=== PATIENT | male | born 1970 | race Caucasian/White ===

== ENCOUNTER → 2021-09-10 07:00 | Outpatient (CLI) | payer OTHER, SELFPAY ==
[2021-09-10 19:42] LABS: COVID19 - ORCAS (NP or Nasal) Negative (Negative)
== END ==
PROVIDERS: PCP Family Medicine; Visit Provider Physician Assistant
DX: Z20.822 Contact with and (suspected) exposure to COVID-19 (principal); Z01.812 Encounter for preprocedural laboratory examination
CPT/HCPCS: U0003

== ENCOUNTER 2021-09-12 08:32 | Day surgery (SDC) | payer OTHER, SELFPAY ==
--- NOTE | 2021-09-12 | PATH_ITS ---
[facility] Accession Number: [id number] . 01 Material submitted: . colon - ASCENDING POLYP . 01 Diagnosis: Ascending Colon, Polyp, Biopsy: Tubular adenoma. MRV 09/17/2021 1334 Local . 01 Electronically signed: . Jyotsna Fall MD, Pathologist NPI- [id number] . 01 Gross description: . ASCENDING POLYP: Received in formalin are multiple fragment(s) of reynolds, soft tissue measuring 2.0 x 0.7 x 0.3 cm in aggregate submitted entirely in 1 cassette(s) /CPE 09/13/2021 0523 Local . 01 Pathologist provided ICD-10: D12.2 . 01 CPT . 017969 Specimen Comment: A courtesy copy of this report has been sent to [phone] Performed at: 01 [facility] [address] [place] [address] [id number] MD Adam Richards MD Phone: [phone]
[2021-09-12 09:20] VITALS: BP 110/60; PULSE 671; RESP 16; TEMP 36.8; O2SAT 100; BMI 22.6
[2021-09-12] MEDS: SODIUM CHLORIDE 0.9% 1,000 ML 84 ML IV (09:32)
--- NOTE | 2021-09-12 09:58 | PM.HP.1 ---
History of Present Illness History of Present Illness Date Patient Seen: 09/12/21 Time Patient Seen: 09:58 Chief complaint: SDC Narrative: Brian is a 51-year-old man who is here for colon cancer screening. He has never had a colonoscopy before. Patient History Family & Social History Social History: household members spouse Tobacco & Substance use: Smoking Status Never smoker alcohol intake current alcohol intake frequency 0-2 drinks per day Substance Use Type does not use Meds Home Medications and Allergies Home Medications Medication Instructions Recorded Confirmed Type sumatriptan succinate 50 mg tablet 50 mg PO ONCE 01/08/21 09/12/21 History Allergies Allergy/AdvReac Type Severity Reaction Status Date / Time fluconazole Allergy Severe Rash Verified 01/08/21 08:48 clindamycin Allergy Mild Rash Verified 01/08/21 08:48 Exam Vital Signs (past 8 hours): - 09/12/21 09:20 Temperature 98.3 F Pulse Rate 671 H Respiratory Rate 16 Blood Pressure 110/60 Pulse Oximetry 100 Oxygen Delivery Method Room Air Const General: healthy appearing Resp Effort & Inspection: normal respiratory effort GI Palpation: soft Assessment & Plan Assessment and plan (1) Colon cancer screening: Status: Acute Plan 51-year-old man who is due for colon cancer screening. We discussed the risks and benefits of colonoscopy for colon cancer screening and he would like to proceed. He is an ASA 2. COVID-19 COVID-19 status: Negative Result date/Date tested (Pos, Neg/Pending): 09/11/21 Time Spent With Patient Critical Care time: I spent a total of [] minutes of critical care time on this patient's care today; this time is exclusive of procedural time.
[2021-09-12] MEDS: fentaNYL 250 MCG/5 ML INJ 225 MCG IV (10:31)
[2021-09-12] MEDS: MIDAZOLAM 5 MG/5 ML VIAL 7 MG IV (10:31)
--- NOTE | 2021-09-12 10:50 | PM.OP.COLON ---
Operative Date/Time/Diagnoses Date of procedure: 09/12/21 Time of procedure: 10:50 Pre-op diagnosis: Colon cancer screening Post-op diagnosis: same Procedure & Clinicians Study performed: Colonoscopy Same procedure as scheduled: Yes Procedure Notes Procedure in detail: Surgeon: Joshua Elliott MD Procedure: The patient was brought to the endoscopy suite, placed in left lateral decubitus position. The patient was connected to monitoring devices. A time-out was performed. Sedation was administered. Once the patient was adequately sedated, a digital rectal exam was performed and was normal. The scope was then inserted and advanced to the cecum where the appendiceal orifice was identified and photographed. The scope was then slowly withdrawn over greater than 6 minutes. Mucosa was thoroughly inspected. There was a large pedunculated polyp in the ascending colon just distal to ileocecal valve which was about 2 cm diameter. This was snared at the base and removed with the hot snare. The polyp was too large to through the channel so the snare was brought back into divide the polyp into about the pieces which could not be suctioned into the trap. These were sent as ?ascending colon polyp. The rest of the colon was normal. The scope was retroflexed in the rectum. No abnormalities were seen. The scope was straightened and removed. The patient was awakened and brought to recovery. Versed: 7 mg Fentanyl: 225 mcg EBL: 5 mL Findings: 2-3 cm pedunculated polyp in ascending colon. Scope withdrawal time: 15 Sedation minutes: 36 Post-procedure Recommendations: Will call with biopsy results Disposition: PACU
[2021-09-12 10:54] VITALS: BP 109/66; PULSE 64; RESP 16; TEMP 36.3; O2SAT 99
[2021-09-12 10:59] VITALS: BP 99/60; PULSE 61; RESP 16; O2SAT 99
[2021-09-12 11:08] VITALS: BP 109/62; PULSE 63; RESP 16; TEMP 36.8; O2SAT 100
== END 2021-09-12 11:13 | disposition home or self-care (01) ==
PROVIDERS: PCP Family Medicine; Referring Provider Surgery; Visit Provider Surgery
PROC: 0DJD8ZZ Inspection of Lower Intestinal Tract, Via Natural or Artificial Opening Endoscopic (ICD-10-PCS; CPT 45378; principal; 2021-09-12 10:15)
DX: Z12.11 Encounter for screening for malignant neoplasm of colon (principal); D12.2 Benign neoplasm of ascending colon
CPT/HCPCS: 45385; 99152; 99153; J2250; J3010

== ENCOUNTER → 2023-10-02 09:24 | Outpatient (CLI) | payer OTHER, SELFPAY ==
[2023-10-02 18:17] LABS: Add Manual Diff / Slide Review NO; Basophils Absolute Auto 0 /uL (0-100); Basophils Percent Auto 0.6 % (0-2); Eosinophils Absolute Auto 100 /uL (0-450); Eosinophils Percent Auto 2.9 % (2-4); Hematocrit 41.5 % (41-53); Hemoglobin 14.2 g/dL (13.5-17.5); Lymphocytes Absolute Auto 1600 /uL (1100-4500); Mean Corpuscular HGB Conc 34.1 % (30-36); Mean Corpuscular Hemoglobin 29.7 PG (26-34); Mean Corpuscular Volume 86.9 fL (80-100); Monocytes Absolute Auto 300 /uL (0-900); Monocytes Percent Auto 7.9 % (3-14); Neutrophils Absolute Auto 2300 /uL (1500-7000); Neutrophils Percent Auto 51.6 % (50-75); Platelet Count 209 X10^3/uL (150-400); Red Blood Cell Count 4.77 X10^6/uL (4.5-5.9); Red Cell Distribution Width 13.1 % (11.6-14.8); White Blood Cell Count 4.4 X10^3/uL (4.5-11.0)
[2023-10-02 18:34] LABS: BUN Creatinine Ratio 20.3 (6-22); Blood Urea Nitrogen 15 mg/dL (9-20); Carbon Dioxide 28 mmol/L (22-32); Chloride 102 mmol/L (98-107); Cholesterol 198 mg/dL (140-199); Estimated Glomerular Filt Rate > 60 mL/min (>60); Glucose 92 mg/dL (70-100); HDL Cholesterol 71 mg/dL (40-60); HEMOLYSIS 20 (0-50); LDL Cholesterol Calculated 107 mg/dL (<100); Potassium 4.3 mmol/L (3.4-5.1); Sodium 136 mmol/L (137-145); Triglycerides 101 mg/dL (35-150)
[2023-10-02 19:03] LABS: Prostate Specific Antigen Scrn 2.11 ng/mL (0.1-4.0)
== END ==
PROVIDERS: PCP Family Medicine; Referring Provider Family Medicine; Visit Provider Family Medicine
DX: Z12.5 Encounter for screening for malignant neoplasm of prostate (principal); Z13.1 Encounter for screening for diabetes mellitus; Z13.220 Encounter for screening for lipoid disorders; Z13.6 Encounter for screening for cardiovascular disorders
CPT/HCPCS: 80048; 80061; 85025; G0103

== ENCOUNTER 2024-10-13 09:09 | Day surgery (SDC) | payer BC, SELFPAY ==
[2024-10-13 09:26] VITALS: BP 110/64; PULSE 80; RESP 15; TEMP 36.7; O2SAT 99
[2024-10-13] MEDS: LACTATED RINGERS 1,000 ML 84 ML IV (09:45)
--- NOTE | 2024-10-13 09:46 | PM.HP.IH.1 ---
History of Present Illness History of Present Illness Date Patient Seen: 10/13/24 Time Patient Seen: 09:46 Chief complaint: SDC Narrative: Brian is a 54-year-old man who had a colonoscopy 3 years ago with removal of a relatively large tubular adenoma in his ascending colon. He was told to return in 3 years. [facility] Social History household members: spouse Smoking Status: Never smoker alcohol intake: current Meds Home Medications and Allergies Home Medications ?Medication ?Instructions ?Recorded ?Confirmed ?Type sumatriptan succinate 50 mg tablet 50 mg PO ONCE 01/08/21 10/20/23 History sumatriptan succinate 50 mg tablet 50 mg PO ONCE PRN migraine 06/10/24 Rx headache #14 tabs Allergies Allergy/AdvReac Type Severity Reaction Status Date / Time fluconazole Allergy Severe Rash Verified 10/13/24 09:24 clindamycin Allergy Mild Rash Verified 10/13/24 09:24 Exam Vital Signs (past 8 hours): - 10/13/24 09:26 Temperature 98.1 F Pulse Rate 80 Respiratory Rate 15 Blood Pressure 110/64 Pulse Oximetry 99 Oxygen Delivery Method Room Air Oxygen Delivery Method Room Air Const General: healthy appearing Assessment & Plan Assessment and plan (1) History of adenomatous polyp of colon: Status: Acute Plan Colonoscopy Time-Based Coding :: [TOTAL MINUTES] spent with patient and on the chart (including review of chart, obtaining history, exam, reviewing outside data, placing orders, documenting exam and treatment plan, and counseling patient) on [DATE]. [employer] W[employer] Document charge(s): No
[2024-10-13 10:23] VITALS: BP 120/70; PULSE 70; RESP 16; TEMP 36.2; O2SAT 98
--- NOTE | 2024-10-13 10:26 | PM.OP.COLON ---
Operative Date/Time/Diagnoses Date of procedure: 10/13/24 Time of procedure: 10:26 Pre-op diagnosis: History of tubular adenoma Post-op diagnosis: same Procedure & Clinicians Study performed: Colonoscopy Same procedure(s) as scheduled: Yes Surgeon: Joshua Elliott Procedure Notes Procedure in detail: Surgeon: Joshua Elliott MD Anesthesia: Jagjit Stewart CRNA Procedure: The patient was brought to the endoscopy suite, placed in left lateral decubitus position. The patient was connected to monitoring devices. A time-out was performed. Sedation was administered. Once the patient was adequately sedated, a digital rectal exam was performed and was normal. The scope was then inserted and advanced to the cecum where the appendiceal orifice was identified and photographed. The scope was then slowly withdrawn over greater than 6 minutes. The mucosa was thoroughly inspected. No abnormalities were found. The scope was retroflexed in the rectum. The scope was straightened and removed. The patient was awakened and brought to recovery. Scope withdrawal time: 11 minutes Sedation time: 16 minutes EBL: 0 Findings: Normal colon Post-procedure Recommendations: Colonoscopy in 5 years Disposition: PACU
[2024-10-13 10:33] VITALS: BP 100/70; PULSE 68; RESP 16; TEMP 36.2; O2SAT 98
[2024-10-13 10:41] VITALS: BP 115/70; PULSE 78; RESP 16; TEMP 36.2; O2SAT 98
== END 2024-10-13 10:50 | disposition home or self-care (01) ==
PROVIDERS: PCP Family Medicine; Referring Provider Surgery; Visit Provider Surgery
PROC: 0DJD8ZZ Inspection of Lower Intestinal Tract, Via Natural or Artificial Opening Endoscopic (ICD-10-PCS; CPT 45378; principal; 2024-10-13 10:30)
DX: Z12.11 Encounter for screening for malignant neoplasm of colon (principal); Z86.0101 Personal history of adenomatous and serrated colon polyps
CPT/HCPCS: 45378; J2704

== ENCOUNTER → 2024-11-07 10:21 | Outpatient (CLI) | payer BC, SELFPAY ==
[2024-11-07 19:32] LABS: Add Manual Diff / Slide Review NO; Hematocrit 41.2 % (41-53); Hemoglobin 14.0 g/dL (13.5-17.5); Lymphocytes Absolute Auto 1600 /uL (1100-4500); Mean Corpuscular HGB Conc 34.0 % (30-36); Mean Corpuscular Hemoglobin 29.5 PG (26-34); Mean Corpuscular Volume 86.7 fL (80-100); Platelet Count 230 X10^3/uL (150-400)
[2024-11-07 19:41] LABS: Blood Urea Nitrogen 15 mg/dL (9-20); Calcium 9.4 mg/dL (8.4-10.2); Carbon Dioxide 28 mmol/L (22-32); Chloride 101 mmol/L (98-107); Cholesterol 204 mg/dL (140-199); Estimated Glomerular Filt Rate > 60 mL/min (>60); Glucose 86 mg/dL (70-99); HDL Cholesterol 66 mg/dL (40-60); HEMOLYSIS < 15 (0-50); Potassium 4.4 mmol/L (3.4-5.1); Sodium 135 mmol/L (137-145); Triglycerides 79 mg/dL (35-150)
[2024-11-07 20:08] LABS: Prostate Specific Antigen 2.47 ng/mL (0.10-4.00)
== END ==
PROVIDERS: PCP Family Medicine; Visit Provider Family Medicine
DX: Z13.1 Encounter for screening for diabetes mellitus (principal); Z12.5 Encounter for screening for malignant neoplasm of prostate; Z13.6 Encounter for screening for cardiovascular disorders
CPT/HCPCS: 80048; 80061; 84153; 85025